=== PATIENT | female | born 1960 | race Caucasian/White ===

== ENCOUNTER 2020-06-07 17:37 | Emergency (ER) | payer OTHER, SELFPAY ==
--- NOTE | 2020-06-07 18:16 | RAD ---
Frontal radiograph chest: 06/07/2020 COMPARISON: None HISTORY: Shortness of breath FINDINGS: Lungs are clear. Heart and mediastinal contours appear within normal limits. Mild increased linear interstitial density with pulmonary hyperinflation. Question a history of COPD. IMPRESSION: No acute findings.
[2020-06-07] MEDS ORDERED: Acetaminophen 500 MG TAB ONE (18:55)
[2020-06-07] MEDS ORDERED: predniSONE 20 MG TAB ONE (18:55)
[2020-06-09 12:29] LABS: SARS-CoV-2 MS2 Positive; SARS-CoV-2 N Gene Positive; SARS-CoV-2 S Gene Positive; SARS-CoV-2 orf1ab Positive
== END 2020-06-07 21:35 | disposition home or self-care (01) ==
LOC: ERS 17:37
DX: U07.1 COVID-19 (principal); J44.1 Chronic obstructive pulmonary disease with (acute) exacerbation; F31.9 Bipolar disorder, unspecified; F43.10 Post-traumatic stress disorder, unspecified; Z87.891 Personal history of nicotine dependence; Z79.899 Other long term (current) drug therapy
CPT/HCPCS: 71045; 87635; J7512; U0003